=== PATIENT | male | born 1950 | race Caucasian/White ===

== ENCOUNTER → 2022-11-21 | Outpatient (REF) | payer MEDICARE ==
[2022-11-21 14:13] LABS: APPEARANCE, URINE CLEAR (CLEAR); BACTERIA, URINE AUTO NEGATIVE (NEGATIVE); BILIRUBIN, URINE AUTO NEGATIVE (NEGATIVE); BLOOD, URINE BLOOD 1+ (NEGATIVE); COLOR, URINE YELLOW (YELLOW); GLUCOSE, URINE (UA) AUTO NEGATIVE (NEGATIVE); KETONE, URINE AUTO NEGATIVE (NEGATIVE); LEUKOCYTE ESTERASE, URINE AUTO 2+ (NEGATIVE); NITRITE, URINE AUTO NEGATIVE (NEGATIVE); PROTEIN, URINE AUTO NEGATIVE (NEGATIVE); RBC, URINE AUTO 1 /HPF (0-3); SPECIFIC GRAVITY URINE AUTO 1.013 (1.002-1.035); SQUAMOUS EPITHELIAL CELL UR AU 0 /HPF (0-6); UROBILINOGEN, URINE AUTO 0.2 mg/dL (0.0-2.0); WBC, URINE AUTO 5 /HPF (0-3)
== END ==
LOC: M SMT 13:08
PROVIDERS: ATTEND Physician Assistant
DX: Z87.448 Personal history of other diseases of urinary system (principal)

== ENCOUNTER → 2022-11-28 | Outpatient (CLI) | payer MEDICARE | LOC: M RAD 10:45 | PROVIDERS: ATTEND Physician Assistant | DX: Z87.442 Personal history of urinary calculi (principal) ==

== ENCOUNTER → 2023-01-29 | Outpatient (CLI) | payer MEDICARE | LOC: M WHC 07:15 | PROVIDERS: ATTEND Nurse Practitioner Family | DX: R20.8 Other disturbances of skin sensation (principal); N64.4 Mastodynia; Z80.3 Family history of malignant neoplasm of breast; N62 Hypertrophy of breast | CPT/HCPCS: 77066; G0279 ==

== ENCOUNTER → 2023-11-23 | Outpatient (REF) | payer MEDICARE ==
[~2023-11-23] MED LIST: ACET650T61 PO; OMEP40CA5 PO; ROSU20TA61 PO
[2023-11-23 13:37] LABS: APPEARANCE, URINE CLEAR (CLEAR); BACTERIA, URINE AUTO NEGATIVE (NEGATIVE); BILIRUBIN, URINE AUTO NEGATIVE (NEGATIVE); BLOOD, URINE BLOOD 1+ (NEGATIVE); COLOR, URINE YELLOW (YELLOW); GLUCOSE, URINE (UA) AUTO NEGATIVE (NEGATIVE); KETONE, URINE AUTO NEGATIVE (NEGATIVE); LEUKOCYTE ESTERASE, URINE AUTO 1+ (NEGATIVE); MUCUS, URINE SMALL (NEGATIVE); NITRITE, URINE AUTO NEGATIVE (NEGATIVE); PROTEIN, URINE AUTO 2+ mg/dL (NEGATIVE); RBC, URINE AUTO 2 /HPF (0-3); SPECIFIC GRAVITY URINE AUTO 1.015 (1.002-1.035); SQUAMOUS EPITHELIAL CELL UR AU 1 /HPF (0-6); UROBILINOGEN, URINE AUTO 0.2 mg/dL (0.0-2.0); WBC, URINE AUTO 5 /HPF (0-3)
== END ==
LOC: M SMT 12:25
PROVIDERS: ATTEND Physician Assistant
DX: Z87.448 Personal history of other diseases of urinary system (principal)

== ENCOUNTER → 2023-12-03 | Outpatient (CLI) | payer MEDICARE | LOC: M RAD 08:35 | PROVIDERS: ATTEND Physician Assistant | DX: Z87.442 Personal history of urinary calculi (principal) ==